=== PATIENT | male | born 1965 | race Two or more races ===

== ENCOUNTER → 2018-04-19 | Day surgery (SDC) | payer BC ==
[~2018-04-19] MED LIST: IV RINGERS,LACTATED 1000ML 1,000 ML IV SCH; LIDOCAINE 1% PF 2 ML VIAL. ID PRN; LIDOCAINE 2% PF Vial for OR 5 ML VIAL. ONE; MIDAZOLAM HCL/PF 2 MG/2 ML VIAL. IV PRN; PROPOFOL 40 ML IV ONE; fentaNYL PF VIAL 100 MCG/2 ML VIAL IV PRN
[2018-04-19 09:24] VITALS: BP 106/76
== END | disposition home or self-care (01) ==
LOC: SURG 07:28
PROVIDERS: ATTEND Internal Medicine Gastroenterology
DX: Z12.11 Encounter for screening for malignant neoplasm of colon (principal); K64.0 First degree hemorrhoids; K21.9 Gastro-esophageal reflux disease without esophagitis; Z83.3 Family history of diabetes mellitus; Z98.890 Other specified postprocedural states
CPT/HCPCS: 45378; J2001; J2704

== ENCOUNTER → 2018-08-28 | Outpatient (CLI) | payer BC, OTHER ==
[2018-04-19 09:24] VITALS: BP 106/76
--- NOTE | 2018-08-28 15:38 | KCIC ---
MRI Lumbar Spine without contrast History: Lumbago, right sciatica, pain into the right leg Technique: Multiplanar, multi sequential noncontrast MR imaging was performed of the lumbar spine. Comparison: None Findings: Lumbar vertebral body stature and AP alignment are maintained. There is moderate to severe degenerative disc disease at L2-L3, moderate degenerative disc disease at more inferior levels. 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 Conus terminates at T12-L1. There is no significant marrow edema. There are posterior and anterior annular tears L2-3 and L3-4 and also posteriorly at L4-5. L2-L3: There is disc osteophyte complex and bulge, mild indentation upon the ventral thecal sac somewhat greater in the far left lateral recess without significant spinal stenosis. There is mild prominence of posterior epidural fat. Neural foramina are adequate. L3-L4: There is posterior bulge, mild indentation upon the ventral thecal sac greater in the lateral recesses bilaterally, very mild narrowing of the far lateral recesses bilaterally. There is very mild inferior narrowing of the left neural foramen by disc osteophyte complex and bulge, right neural foramen overall adequate. L4-L5: There is broad posterior protrusion greatest centrally, mild indentation upon the ventral thecal sac without significant focal neural impingement or significant spinal stenosis. Minimal disc osteophyte complex contributes to minimal inferior narrowing of the left neural foramen, right neural foramen overall adequate. L5-S1: Spinal canal and neural foramina are adequate. Impression: 1. There is moderate to severe degenerative disc disease at L2-3, moderate degenerative disc disease of more inferior lumbar levels. There is no significant lumbar spinal stenosis, very mild narrowing of the far lateral recesses bilaterally at L3-4. There is shallow posterior protrusion at L4-5 without significant neural impingement. There is very mild neural foramina compromise on the left at L3-4 and L4-5. Electronically signed by: Leighton Chaney MD (08/28/2018 3:34 PM) [id number]
== END | disposition home or self-care (01) ==
LOC: KCIC MRI 14:26
PROVIDERS: ATTEND Preventive Medicine Occupational Medicine
DX: M51.36 Other intervertebral disc degeneration, lumbar region (principal); M51.26 Other intervertebral disc displacement, lumbar region; M25.78 Osteophyte, vertebrae
CPT/HCPCS: 72148